=== PATIENT | female | born 1980 | race Caucasian/White ===

== ENCOUNTER 2020-05-17 07:43 | Day surgery (SDC) | payer OTHER, SELFPAY ==
[~2020-05-17] VITALS: Ht 157.5 cm; Wt 95.7 kg
[2020-05-17] MEDS ORDERED: BUPIVACAINE-MPF/EPI 0.25% 30 ML VIAL INJ ONE (08:50)
[2020-05-17] MEDS ORDERED: LIDOCAINE 1% 500 MG/50 ML VIAL ONE (08:51)
[2020-05-17] MEDS ORDERED: HYDROcodone/APAP 5/325 MG 1 TAB TAB PO PRN (11:35)
[2020-05-17] MEDS ORDERED: MORPHINE SULFATE 4 MG/ML SYR IV PRN (11:35)
[2020-05-17] MEDS ORDERED: ONDANSETRON 4 MG/2 ML VIAL IV PRN (11:35)
[2020-05-17] MEDS ORDERED: HYDROmorphone 1 MG/ML AMP IVP PRN ×2 (11:35→11:50)
[2020-05-17] MEDS ORDERED: MORPHINE SULFATE 2 MG/ML SYR IVP PRN (11:35)
[2020-05-17] MEDS ORDERED: ONDANSETRON 4 MG/2 ML VIAL IVP PRN (11:50)
[2020-05-17] MEDS ORDERED: MEPERIDINE 25 MG/ML SYR IVP PRN (11:50)
[2020-05-17] MEDS ORDERED: diphenhydrAMINE 50 MG/ML VIAL IVP PRN (11:50)
[2020-05-17] MEDS ORDERED: LACTATED RINGERS 1,000 ML IV SCH (11:50)
[2020-05-17] MEDS: HYDROmorphone PFS 2 MG/ML SYR ONE ×2 (11:55→12:05)
== END 2020-05-17 13:45 | disposition home or self-care (01) ==
LOC: MOR 07:43 → MFCC 07:45 → MOR 13:45
PROVIDERS: ATTEND Surgery
DX: K80.10 Calculus of gallbladder with chronic cholecystitis without obstruction (principal)
CPT/HCPCS: 36415; 47562; 71045; 82374; 86886; 86900; 86901; 87426; J0690; J1170; J3490; J7030; J7060; J2001